=== PATIENT | male | born 1980 | race Caucasian/White ===

== ENCOUNTER 2020-03-21 15:20 | Emergency (ER) | payer SELFPAY, OTHER ==
--- NOTE | 2020-03-21 17:01 | RAD REPORT ---
EXAM DESCRIPTION: RAD - Chest Single View - 03/21/2020 4:54 pm CLINICAL HISTORY: Cough;SOB Chest pain. COMPARISON: No comparisons FINDINGS: Portable technique limits examination quality. The lungs are grossly clear. The heart is normal in size. No displaced fractures. IMPRESSION: No acute intrathoracic process suspected.
--- NOTE | 2020-03-21 17:34 | EDPHYS ---
Physician Documentation [facility] Name: Satinder Gordon Age: 39 yrs Sex: Male : 1980 Arrival Date: 03/21/2020 Time: 15:25 Bed 16 Private MD: ED Physician Gabriele Guillaume HPI: 03/21 16:36 This 39 yrs old Male presents to ER via Ambulatory with complaints of pm1 Shortness Of Breath. 16:36 The patient or guardian reports cough, flu symptoms, Decreased appetite and body aches. pm1 Onset: The symptoms/episode began/occurred 2 day(s) ago. Severity of symptoms: in the emergency department the symptoms are actually worse. Modifying factors: The symptoms are alleviated by nothing, the symptoms are aggravated by exertion. Associated signs and symptoms: Pertinent positives: fever, body aches, change of food taste . 16:36 He had flu-like symptoms winter of last year. It is unknown whether or not the patient pm1 has recently seen a physician. Historical: - Allergies: 15:27 No Known Allergies; sv - PMHx: 15:27 None; sv - PSHx: 15:27 None; sv - Immunization history:: Flu vaccine is not up to date. - Social history:: Smoking status: Patient denies any tobacco usage or history of. ROS: 16:36 Eyes: Negative for injury, pain, redness, and discharge, Neck: Negative for injury, pm1 pain, and swelling. 16:36 Cardiovascular: Negative for chest pain, palpitations, and edema, Abdomen/GI: Negative for abdominal pain, nausea, vomiting, diarrhea, and constipation, Back: Negative for injury and pain, MS/Extremity: Negative for injury and deformity, Skin: Negative for injury, rash, and discoloration, Neuro: Negative for headache, weakness, numbness, tingling, and seizure. 16:36 Constitutional: Positive for body aches, decreased appetite, subjective fever. 16:36 ENT: Positive for sore throat. 16:36 Respiratory: Positive for cough, shortness of breath, Negative for sputum production, wheezing. Exam: 16:36 Constitutional: This is a well developed, well nourished patient who is awake, alert, pm1 and in no acute distress. Head/Face: Normocephalic, atraumatic. Neck: Trachea midline, no thyromegaly or masses palpated, and no cervical lymphadenopathy. Supple, full range of motion without nuchal rigidity, or vertebral point tenderness. No Meningismus. Chest/axilla: Normal chest wall appearance and motion. Nontender with no deformity. No lesions are appreciated. 16:36 Abdomen/GI: Soft, non-tender. No guarding or rebound. No evidence of tenderness throughout. Back: No spinal tenderness. No costovertebral tenderness. Full range of motion. Skin: Warm, dry with normal turgor. Normal color with no rashes, no lesions, and no evidence of cellulitis. MS/ Extremity: Pulses equal, no cyanosis. Neurovascular intact. Full, normal range of motion. 16:36 Cardiovascular: Exam negative for acute changes, Rate: normal, Rhythm: regular, Pulses: no pulse deficits are appreciated, Edema: is not appreciated. 16:36 Respiratory: Exam negative for acute changes, respiratory distress, shortness of breath, wheezing. 16:36 Neuro: Exam negative for acute changes, Orientation: is normal, Mentation: is normal, Motor: is normal, moves all fours. Vital Signs: 15:27 BP 131 / 101; Pulse 93; Resp 28; Temp 97.9(O); Pulse Ox 99% ; Weight 99.79 kg; Height 5 sv ft. 8 in. (172.72 cm); 16:00 BP 130 / 94; Pulse 74; Resp 22; Pulse Ox 98% ; ah 15:27 Body Mass Index 33.45 (99.79 kg, 172.72 cm) sv MDM: 15:43 Patient medically screened. pm1 17:33 Data reviewed: vital signs. Data interpreted: Pulse oximetry: on room air is 98 %. pm1 Interpretation: normal. Counseling: I had a detailed discussion with the patient and/or guardian regarding: the historical points, exam findings, and any diagnostic results supporting the discharge/admit diagnosis, lab results, radiology results, the need for outpatient follow up, to return to the emergency department if symptoms worsen or persist or if there are any questions or concerns that arise at home. 03/21 15:58 Order name: COVID-19 pm1 03/21 15:58 Order name: Flu; Complete Time: 17:28 pm1 03/21 15:58 Order name: CXR XRAY; Complete Time: 17:12 pm1 03/21 15:58 Order name: Strep; Complete Time: 17:12 pm1 03/21 17:02 Order name: Throat Culture EDMS Administered Medications: No medications were administered Disposition: 18:50 Co-signature as Attending Physician, Gabriele Guillaume MD. rn Disposition: 03/21/20 17:33 Discharged to Home. Impression: Acute upper respiratory infection, unspecified. - Condition is Stable. - Discharge Instructions: Upper Respiratory Infection, Adult. - Prescriptions for Tessalon Perles 100 mg Oral Capsule - take 1 capsule by ORAL route every 8 hours As needed; 15 capsule. - Work release form, Medication Reconciliation Form, Thank You Letter, Antibiotic Education, Prescription Opioid Use form. - Follow up: Emergency Department; When: As needed; Reason: Worsening of condition. Follow up: Private Physician; When: 2 - 3 days; Reason: Recheck today's complaints, Continuance of care, Re-evaluation by your physician. - Problem is new. - Symptoms have improved. Signatures: Dispatcher [employer] Eileen Minor RN RN Gabriele Alexander MD MD rn Marinas, Patrick, HOME HOUSEKEEPER HOME HOUSEKEEPER pm1 Nohemi Khanna RN RN Corrections: (The following items were deleted from the chart) 18:39 17:33 03/21/2020 17:33 Discharged to Home. Impression: Acute upper respiratory ah infection, unspecified. Condition is Stable. Forms are Medication Reconciliation Form, Thank You Letter, Antibiotic Education, Prescription Opioid Use. Follow up: Emergency Department; When: As needed; Reason: Worsening of condition. Follow up: Private Physician; When: 2 - 3 days; Reason: Recheck today's complaints, Continuance of care, Re-evaluation by your physician. Problem is new. Symptoms have improved. pm1
--- NOTE | 2020-03-21 17:34 | ER ---
Nurse's Notes [facility] Name: Satinder Gordon Age: 39 yrs Sex: Male : 1980 Arrival Date: 03/21/2020 Time: 15:25 Bed 16 Private MD: Diagnosis: Acute upper respiratory infection, unspecified Presentation: 03/21 15:25 Chief complaint: Patient states: decreased appetite, subjective fever, cough, fatigue, sv SOB x 2 days. Coronavirus screen: Surgical mask placed on patient. Patient moved to private room, placed in contact and droplet isolation with eye protection until further assessment. Patient reports a cough. Patient reports shortness of breath or difficulty breathing. Patient reports a measured and/or subjective temperature greater than 100.4F. Patient denies travel on a cruise ship or to a country the [facility] currently lists as an affected area. Patient denies contact with known and/or suspected case of COVID-19. Ebola Screen: No symptoms or risks identified at this time. Risk Assessment: Do you want to hurt yourself or someone else? Patient reports no desire to harm self or others. Onset of symptoms was March 19, 2020. 15:25 Method Of Arrival: Ambulatory sv 15:25 Acuity: JAH 3 sv 15:27 Initial Sepsis Screen: Does the patient meet any 2 criteria? RR > 20 per min. HR > 90 sv bpm. No. Patient's initial sepsis screen is negative. Does the patient have a suspected source of infection? No. Patient's initial sepsis screen is negative. Triage Assessment: 15:30 General: Appears in no apparent distress. comfortable, Behavior is calm, cooperative, sv appropriate for age. General: Reports chills for 1-2 days, feeling ill for 1-2 days, fatigue for 1-2 days. Pain: Denies pain. Neuro: Level of Consciousness is awake, alert, obeys commands, Gait is steady. Respiratory: Reports shortness of breath cough that is non-productive, Respiratory effort is even, unlabored, Respiratory pattern is tachypnea. Historical: - Allergies: 15:27 No Known Allergies; sv - PMHx: 15:27 None; sv - PSHx: 15:27 None; sv - Immunization history:: Flu vaccine is not up to date. - Social history:: Smoking status: Patient denies any tobacco usage or history of. Screenin:44 Abuse screen: Denies threats or abuse. Nutritional screening: No deficits noted. Tuberculosis screening: No symptoms or risk factors identified. Fall Risk None identified. Assessment: 16:00 General: Appears in no apparent distress. Behavior is calm. Pain: Denies pain. Neuro: Level of Consciousness is awake, alert, Oriented to person, place, time, situation. Cardiovascular: Heart tones S1 S2 present Capillary refill < 3 seconds Patient's skin is warm and dry. Cardiovascular: Rhythm is. Respiratory: Airway is patent Respiratory effort is even, unlabored, Respiratory pattern is regular, symmetrical, Breath sounds are clear bilaterally. Onset: The symptoms/episode began/occurred a few days ago, the patient has mild shortness of breath. GI: No signs and/or symptoms were reported involving the gastrointestinal system. : No signs and/or symptoms were reported regarding the genitourinary system. EENT: No signs and/or symptoms were reported regarding the EENT system. Derm: No signs and/or symptoms reported regarding the dermatologic system. Musculoskeletal: No signs and/or symptoms reported regarding the musculoskeletal system. 17:00 Reassessment: Pt lying in bed resting. Awaiting on test results. Vital Signs: 15:27 BP 131 / 101; Pulse 93; Resp 28; Temp 97.9(O); Pulse Ox 99% ; Weight 99.79 kg; Height 5 sv ft. 8 in. (172.72 cm); 16:00 BP 130 / 94; Pulse 74; Resp 22; Pulse Ox 98% ; ah 15:27 Body Mass Index 33.45 (99.79 kg, 172.72 cm) sv ED Course: 15:25 Patient arrived in ED. mr 15:27 Triage completed. sv 15:27 Arm band placed on. sv 15:33 Eric Swanson, LILIA is PHCP. pm1 15:33 Gabriele Guillaume MD is Attending Physician. pm1 15:35 Nohemi Khanna, RN is Primary Nurse. 16:44 Patient has correct armband on for positive identification. Bed in low position. Call light in reach. Side rails up X 1. media services director on. Pulse ox on. NIBP on. 16:54 CXR XRAY In Process Unspecified. EDMS 18:36 No provider procedures requiring assistance completed. Patient did not have IV access during this emergency room visit. Administered Medications: No medications were administered Outcome: 17:33 Discharge ordered by . pm1 18:35 Discharged to home ambulatory. 18:35 Condition: good 18:35 Discharge instructions given to patient, Instructed on discharge instructions, follow up and referral plans. medication usage, Demonstrated understanding of instructions, follow-up care, medications, Prescriptions given X 1. 18:39 Patient left the ED. Addendum: 03/29/2020 13:22 Addendum: Other pt notified of negative COVID-19 swab results. Pt advised that he d m5 should remain in isolation until symptom free for 3 days without medication and to return to the ED if symptoms return or worsen. Signatures: Dispatcher [employer] EDMS Jena Morse RN RN dmEileen Lynch RN RN sv Rivera, Mary mr Marinas, Patrick, TRENCH DIGGER TRENCH DIGGER pm1 Nohemi Khanna RN RN Corrections: (The following items were deleted from the chart) 03/21 15:31 15:27 Resp 28bpm; Pulse Ox 99%; Temp 97.9F Oral; 99.79 kg; Height 5 ft. 8 in.; BMI: sv 33.4; sv
[2020-03-21 19:07] VITALS: TEMP 97.9
[2020-03-21 19:08] VITALS: BP 130/94; O2SAT 98
== END 2020-03-21 18:39 | disposition home or self-care (01) ==
LOC: ER 15:20
DX: J06.9 Acute upper respiratory infection, unspecified (principal)
CPT/HCPCS: 71045; 87070; 87081; 87804; 99284; U0002